=== PATIENT | female | born 1940 | race Hispanic/Latino ===

== ENCOUNTER 2019-01-12 05:31 | Day surgery (SDC) | payer OTHER ==
[~2019-01-12] VITALS: Ht 139.7 cm; Wt 47.2 kg
[2019-01-12] VITALS (8 sets, daily range): BP systolic 112–138; BP diastolic 45–58
[~2019-01-12 05:31] MED LIST: ASPI-555 PO; CALC-910 PO; CYAN25002 SL; ENAL2.5T PO; ERGO500014 PO; L.AC1CAP6 PO; MAGN100T5 PO; METF-444 PO; NINT100C PO; OXYB5TAB PO; PRAV20TA4 PO; UBID100C10 PO
[2019-01-12] MEDS ORDERED: SODIUM CHLORIDE 0.9% 1000ML 1,000 ML IV ONE ×2 (05:54→06:47)
[2019-01-12] MEDS ORDERED: PROPOFOL 10 MG/ML 20ML VIAL IV ONE ×2 (06:34)
[2019-01-12] MEDS ORDERED: GLYCOPYRROLATE 0.2 MG/ML 5 ML VIAL ONE (06:34)
[2019-01-12] MEDS ORDERED: LIDOCAINE HCL-MPF 2% 5ML VIAL ONE (06:34)
[2019-01-12] MEDS ORDERED: EPHEDRINE SULFATE 50 MG/ML AMPULE ONE (06:49)
== END 2019-01-12 07:40 | disposition home or self-care (01) ==
LOC: DAH 05:31 → ENDO 05:31
PROVIDERS: ATTEND Internal Medicine
DX: K57.30 Diverticulosis of large intestine without perforation or abscess without bleeding (principal); D50.9 Iron deficiency anemia, unspecified; K55.20 Angiodysplasia of colon without hemorrhage; K21.0 Gastro-esophageal reflux disease with esophagitis; K29.50 Unspecified chronic gastritis without bleeding; J44.9 Chronic obstructive pulmonary disease, unspecified; I10 Essential (primary) hypertension; Z79.899 Other long term (current) drug therapy; Z79.82 Long term (current) use of aspirin; E78.5 Hyperlipidemia, unspecified; E11.9 Type 2 diabetes mellitus without complications; Z79.84 Long term (current) use of oral hypoglycemic drugs
CPT/HCPCS: 43239; 45378; 82948; 88305; 93005; A4606; J2704 ×2; J3490 ×3; J7030 ×2